=== PATIENT | female | born 1970 | race Asian ===

== ENCOUNTER 2022-05-18 01:05 | Emergency (ER) | payer OTHER ==
[~2022-05-18] VITALS: Ht 160 cm; Wt 56.7 kg
[2022-05-18 01:32] VITALS: BP 147/99
[2022-05-18] MEDS ORDERED: IBUPROFEN 400 MG TABLET ONE (01:38)
[2022-05-18] MEDS ORDERED: IBUPROFEN 400 MG TABLET PO ONE (02:00)
== END 2022-05-18 03:54 | disposition home or self-care (01) ==
LOC: ER 01:08
DX: S13.4XXA Sprain of ligaments of cervical spine, initial encounter (principal); Z88.0 Allergy status to penicillin; Z88.2 Allergy status to sulfonamides; W50.1XXA Accidental kick by another person, initial encounter; Y93.89 Activity, other specified; Y92.89 Other specified places as the place of occurrence of the external cause; Y99.8 Other external cause status
CPT/HCPCS: 72125-TC